=== PATIENT | male | born 1960 | race Two or more races ===

== ENCOUNTER → 2020-12-26 | Outpatient (CLI) | payer MEDICARE ==
[~2020-12-26] MED LIST: ASCO100018 PO; ATOR10TA9 PO; CETI10TA76 PO; CHELATED MAGNESIUM PO; CHOL10003 PO; DOCU100T6 PO; DULO60CA7 PO; GARLIC EXTRACT PO; HYDR-3237 PO; METF750T42 PO; MULT-108 PO; OMEG1CAP34 PO; OMEP-110 PO; POTA99TA3 PO; RIVA20TA PO; TAMS-11 PO; TELM80TA PO; Vitamin B12 PO; ZINC50CA PO
[2020-12-26 10:27] LABS: ALANINE AMINOTRANSFERASE 33 U/L (12-78); ALBUMIN 3.9 g/dL (3.4-5.0); ANION GAP 5 mmol/L (5-15); CHLORIDE 103 mmol/L (98-107)
[2020-12-26 10:30] LABS: ALKALINE PHOSPHATASE 70 U/L (45-117); BILIRUBIN,TOTAL 0.6 mg/dL (0.2-1.0); TOTAL PROTEIN 7.6 g/dL (6.4-8.2)
== END | disposition home or self-care (01) ==
LOC: STAR 08:47
PROVIDERS: ATTEND Orthopaedic Surgery
DX: Z01.818 Encounter for other preprocedural examination (principal); M17.11 Unilateral primary osteoarthritis, right knee; Z20.822 Contact with and (suspected) exposure to COVID-19
CPT/HCPCS: 36415; 80053; 87081; 87147; 93005; U0003; U0005

== ENCOUNTER 2021-01-01 05:19 | Day surgery (SDC) | payer MEDICARE ==
[~2021-01-01] VITALS: Ht 177.8 cm; Wt 123.7 kg
[2021-01-01] MEDS ORDERED: BUPIVACAINE/PF 0.5% ONE (06:03)
[2021-01-01] MEDS ORDERED: TRANEXAMIC ACID 100 MG/ML, 10ML ONE ×2 (06:03)
[2021-01-01] MEDS ORDERED: EPINEPHRINE 1 MG/ML, 1ML ONE (06:04)
[2021-01-01 06:06] VITALS: BP 110/70
[2021-01-01] MEDS ORDERED: FENTANYL PF 250 MCG/5ML ONE (06:15)
[2021-01-01] MEDS ORDERED: MIDAZOLAM 1 MG/ML, 2ML ONE (06:15)
[2021-01-01] MEDS ORDERED: CHLORHEXIDINE 15 ML UDC PO ONE (06:30)
[2021-01-01] MEDS ORDERED: LACTATED RINGERS 1,000 ML IV SCH (06:30)
[2021-01-01] MEDS ORDERED: KETAMINE 10 MG/ML, 20ML ONE (06:46)
[2021-01-01] MEDS ORDERED: NITROGLYCERIN/D5W PMX 250 ML ONE (06:46)
[2021-01-01] MEDS ORDERED: KETOROLAC 30 MG/1 ML ONE (06:51)
[2021-01-01] MEDS ORDERED: GLYCOPYRROLATE 0.2MG/1ML, 5ML ONE (06:51)
[2021-01-01] MEDS ORDERED: SUCCINYLCHOLINE 20 MG/ML, 10ML ONE (06:51)
[2021-01-01] MEDS ORDERED: ROCURONIUM 10 MG/ML,10ML ONE (06:51)
[2021-01-01] MEDS ORDERED: NEOSTIGMINE 1 MG/ML, 10ML ONE (06:51)
[2021-01-01] MEDS ORDERED: PROMETHAZINE 25 MG/ML, 1ML IM PRN (07:00)
[2021-01-01] MEDS ORDERED: HYDROcodone/APAP 5/325 TABLET PO PRN (07:00)
[2021-01-01] MEDS ORDERED: HYDROmorphone 1 MG/ML, 1ML INJ ONE (07:54)
[2021-01-01] MEDS ORDERED: ACETAMINOPHEN 325 MG TABLET PO PRN (08:00)
[2021-01-01] MEDS ORDERED: PROMETHAZINE 25 MG/ML, 1ML IVPush PRN (08:00)
[2021-01-01] MEDS ORDERED: ONDANSETRON 2MG/ML, 2ML IVPush PRN (08:00)
[2021-01-01] MEDS ORDERED: HYDROmorphone 1 MG/ML, 1ML INJ IVPush PRN (08:00)
[2021-01-01] MEDS ORDERED: MEPERIDINE/PF 25MG/0.5ML IVPush PRN (08:00)
[2021-01-01] MEDS ORDERED: LORazepam 2 MG/ML, 1ML IVPush PRN (08:00)
[2021-01-01] MEDS ORDERED: LABETALOL 5MG/ML, 20ML IV PRN (08:00)
[2021-01-01] MEDS ORDERED: METHOCARBAMOL 1,000 MG in DEXTROSE 5% 100 ML IV PRN (08:00)
[2021-01-01] MEDS ORDERED: OXYcodone 5 MG/5 ML ORAL.SOL UDC PO PRN (08:00)
[2021-01-01] MEDS ORDERED: EPHEDRINE 50 MG/ML, 1ML IVPush PRN (08:00)
[2021-01-01] MEDS ORDERED: hydrALAzine 20 MG/ML, 1ML IV PRN (08:00)
[2021-01-01] MEDS ORDERED: ACETAMINOPHEN 650 MG/20.3 ML UDC ONE (08:35)
[2021-01-01] MEDS ORDERED: OXYcodone 5 MG/5 ML ORAL.SOL UDC ONE (08:36)
[2021-01-01] MEDS ORDERED: FENTANYL PF 100 MCG/2ML ONE (08:36)
[2021-01-01] MEDS: FENTANYL PF 100 MCG/2ML IV PRN ×2 (08:46→08:55)
[2021-01-01] MEDS ORDERED: TEMPLATE NON-FORMULARY MED. (Metformin Hcl** (Metformin Hcl Er**) 750 MG) PO SCH (09:00)
[2021-01-01] MEDS ORDERED: TEMPLATE NON-FORMULARY MED. (Duloxetine Hcl (Cymbalta**) 60 MG) PO SCH (09:00)
[2021-01-01] MEDS ORDERED: CETIRIZINE 10 MG TABLET PO SCH (09:00)
[2021-01-01] MEDS ORDERED: ZINC ACETATE 50 MG PO SCH (09:00)
[2021-01-01] MEDS ORDERED: OMEPRAZOLE 20 MG CAPSULE.DR PO SCH (09:00)
[2021-01-01] MEDS ORDERED: DOCUSATE SODIUM 200 MG PO SCH (09:00)
[2021-01-01] MEDS ORDERED: CHOLECALCIFEROL 1,000 UNIT TABLET PO SCH (09:00)
[2021-01-01] MEDS ORDERED: TEMPLATE NON-FORMULARY MED. (Potassium Gluconate** 99 MG) PO SCH (09:00)
[2021-01-01] MEDS ORDERED: TEMPLATE NON-FORMULARY MED. (Telmisartan** (Micardis**) 80 MG) PO SCH (09:00)
[2021-01-01] MEDS ORDERED: CHELATED MAGNESIUM PO SCH (09:00)
[2021-01-01] MEDS ORDERED: TAMSULOSIN 0.4 MG CAP.ER.24H PO SCH (09:00)
[2021-01-01] MEDS ORDERED: PROPOFOL 10 MG/ML, 20ML ONE (09:50)
[2021-01-01] MEDS ORDERED: DEXAMETHASONE 4 MG/ML, 1ML ONE (09:50)
[2021-01-01] MEDS ORDERED: CEFAZOLIN 1,000 MG ONE (09:50)
[2021-01-01] MEDS ORDERED: ONDANSETRON 2MG/ML, 2ML ONE (09:50)
[2021-01-01] MEDS ORDERED: TAMSULOSIN 0.4 MG CAP.ER.24H ONE (12:43)
[2021-01-01] MEDS ORDERED: HYDROcodone/APAP 5/325 TABLET ONE (12:43)
[2021-01-01] MEDS ORDERED: ATORVASTATIN 10 MG TABLET PO SCH (21:00)
[2021-01-01] MEDS ORDERED: RIVAROXABAN 20 MG TABLET PO SCH (21:00)
== END 2021-01-01 15:00 | disposition home or self-care (01) ==
LOC: OUT 05:19
PROVIDERS: ATTEND Orthopaedic Surgery
DX: M17.11 Unilateral primary osteoarthritis, right knee (principal); M25.761 Osteophyte, right knee; G89.18 Other acute postprocedural pain; I10 Essential (primary) hypertension; I48.91 Unspecified atrial fibrillation; E11.9 Type 2 diabetes mellitus without complications; G47.30 Sleep apnea, unspecified; E66.9 Obesity, unspecified; Z68.39 Body mass index [BMI] 39.0-39.9, adult; Z79.84 Long term (current) use of oral hypoglycemic drugs; Z79.891 Long term (current) use of opiate analgesic; Z79.899 Other long term (current) drug therapy; Z87.891 Personal history of nicotine dependence
CPT/HCPCS: 27447; 64447; 82962; 97110; 97161; C1776; J0171; J0330; J0690; J1100; J1170; J1885; J2250; J2405; J2704; J2710; J3010; J7120